=== PATIENT | female | born 1985 | race African-American/Black ===

== ENCOUNTER 2021-06-22 17:22 | Inpatient (IN) | payer OTHER ==
[2021-06-22] MEDS ORDERED: Morphine 4 MG/ML VIAL ONE (18:12)
[2021-06-22] MEDS ORDERED: Ondansetron PF 4 MG/2 ML Vial ONE (18:13)
[2021-06-22 18:20] LABS: Bilirubin Neg (Negative); Blood, Urine 10 (Negative); Clarity Clear (Clear); Glucose, Urine (Dipstick) Normal (Negative); Ketone, Urine Negative (Negative); Leukocyte Negative (Negative); Nitrite Negative (Negative); Protein, Urine (Dipstick) Negative (Neg-Trace); Specific Gravity, Urine 1.025 (1.002-1.036); Urobilinogen Normal mg/dL (Less than 2)
[2021-06-22 18:34] LABS: BHCG - Serum Negative (NEGATIVE); Pregs Control Background? CLEAR/WHITE (CLR/WHITE); Pregs Control Bar Appear? YES (CONTROL BAR)
[2021-06-22 18:36] LABS: #Basophils 0.1 10x3/uL (0.0-0.2); #Eosinphils 0.2 10x3/uL (0.0-0.5); #Monocytes 0.6 10x3/uL (0.0-1.1); #Neutrophils 7.5 10x3/uL (1.5-8.4); %Basophils 0.6 % (0.0-2.0); %Eosinophils 1.6 % (0.0-6.0); %Lymphocytes 34.4 % (18.0-47.0); %Monocytes 4.3 % (0.0-10.0); %Neutrophils 58.9 % (40.0-75.0); ALT (SGPT) 12 U/L (8-55); AST (SGOT) 14 U/L (5-34); Albumin 3.9 g/dL (3.5-5.0); Alkaline Phosphatase 114 U/L (40-110); Anion Gap 15 mmol/L (10-20); BUN (Urea Nitrogen) 14 mg/dL (7.0-18.7); Bilirubin, Total 0.1 mg/dL (0.2-1.2); Calc. Creatinine Clearance 0 mL/min (70-130); Calcium 9.6 mg/dL (7.8-10.44); Carbon Dioxide 20 mmol/L (22-29); Chloride 109 mmol/L (98-107); Globulin 3.1 g/dL (2.4-3.5); Glucose 115 mg/dL (70-105); Hemoglobin 12.6 g/dL (12.0-15.5); Lipase 30 U/L (8-78); Mean Corpuscular HGB CONC 31.7 g/dL (32.0-36.0); Mean Corpuscular Hemoglobin 26.5 pg (27.0-33.0); Mean Corpuscular Volume 83.6 fl (81.6-98.3); Mean Platelet Volume 11.1 fl (7.4-10.4); Platelet Count 298 10x3/uL (150-450); Potassium 3.7 mmol/L (3.5-5.1); RBC Distribution Width 14.4 % (11.5-14.5); Red Blood Cell (RBC) Count 4.75 10x6/uL (3.90-5.03); Sodium 140 mmol/L (136-145); White Blood Cell (WBC) Count 12.7 10x3/uL (3.5-10.5)
[2021-06-22 18:58] LABS: Bacteria/HPF 1+ HPF (None Seen); Mucous/LPF 2+ LPF (<2+); RBC/HPF 0-3 HPF (0-3)
[2021-06-22] MEDS ORDERED: Piperacillin/Tazobactam 4.5 GM VIAL ONE (22:22)
[2021-06-22] MEDS ORDERED: Morphine 2 MG/ML VIAL ONE (22:29)
[2021-06-23 01:16] LABS: SARS-CoV-2 NAA Rapid Test Not Detected (NotDetected)
[2021-06-23] MEDS: Morphine 4 MG/ML VIAL SLOW IVP PRN ×3 (10:31→20:59)
[2021-06-23 12:45] VITALS: BMI 27.6
[2021-06-23] MEDS ORDERED: Fentanyl 100 MCG/2 ML VIAL ONE (15:32)
[2021-06-23] MEDS ORDERED: Ondansetron PF 4 MG/2 ML Vial ONE (15:32)
[2021-06-23] MEDS ORDERED: PROPOFOL 20 ML ONE (15:32)
[2021-06-23] MEDS ORDERED: Dexamethasone 4 mg/ml Vial ONE (15:32)
[2021-06-23] MEDS ORDERED: Rocuronium Bromide 10 MG/ML (10ML VIAL) ONE (15:32)
[2021-06-23] MEDS ORDERED: Midazolam HCl 2 mg/2 ml Vial ONE (15:32)
[2021-06-23] MEDS ORDERED: Bupivacaine 0.25% HCL 30 ML VIAL ONE (15:33)
[2021-06-23] MEDS ORDERED: EPINEPHrine 1 MG/ML AMP ONE (15:33)
[2021-06-23] MEDS ORDERED: Lidocaine 2% PF 5 ML VIAL ONE (15:33)
[2021-06-23] MEDS ORDERED: Ketorolac Tromethamine 30 MG/ML VIAL ONE (16:50)
[2021-06-23] MEDS ORDERED: Glycopyrrolate 0.2 MG/ML 5 ML SYRINGE ONE (16:55)
[2021-06-23] MEDS ORDERED: Dextrose 50% Abboject 50 ML SYRINGE SLOW IVP PRN (17:55)
[2021-06-23] MEDS ORDERED: Promethazine HCl 25 MG/ML VIAL IM PRN (17:55)
[2021-06-23] MEDS ORDERED: Ondansetron PF 4 MG/2 ML Vial IVP PRN (17:55)
[2021-06-23] MEDS ORDERED: Mag-Al 1200 mg/1200 mg/30 ML UDCUP PO PRN (17:55)
[2021-06-23] MEDS ORDERED: Calcium Carbonate 500 MG ChewTAB PO PRN (17:55)
[2021-06-23] MEDS ORDERED: Dextrose 5% in Water 1,000 ML IV PRN (17:55)
[2021-06-23] MEDS ORDERED: hydrALAZINE 20 MG/ML VIAL SLOW IVP PRN (17:55)
[2021-06-23] MEDS: D5 1/2 NS w/20 mEq KCL 1,000 ML IV SCH ×2 (20:05→21:00)
[2021-06-23] MEDS: Famotidine/PF 20 mg/2ml Vial SLOW IVP SCH (20:58)
[2021-06-23] MEDS: HYDROcodone/Acetaminophen 10/325 mg Tablet PO PRN (22:35)
[2021-06-24] MEDS: HYDROcodone/Acetaminophen 10/325 mg Tablet PO PRN (04:05)
[2021-06-24] MEDS: Famotidine/PF 20 mg/2ml Vial SLOW IVP SCH (08:22)
[2021-06-24] MEDS: D5 1/2 NS w/20 mEq KCL 1,000 ML IV SCH (08:23)
[2021-06-24] MEDS: Morphine 4 MG/ML VIAL SLOW IVP PRN (08:33)
[2021-06-24] MEDS ORDERED: Enoxaparin Sodium 40 MG/0.4 ML SYRINGE SC SCH (09:00)
[2021-06-24 11:42] VITALS: BP 155/78; TEMP 97.1
== END 2021-06-24 15:22 | disposition home or self-care (01) | DRG 419 ==
LOC: CSHERS 17:22 → CSHERHOLD 19:11 → UNDOADMOB 06-23 00:37 → CSHERHOLD 06-23 08:33 → CSHTELE 06-23 08:33 → OBSVTOIN 06-23 17:55
PROVIDERS: ADMIT Obstetrics & Gynecology; ATTEND Surgery
PROC: 0FT44ZZ Resection of Gallbladder, Percutaneous Endoscopic Approach (ICD-10-PCS; principal; 2021-06-23)
DX: K80.00 Calculus of gallbladder with acute cholecystitis without obstruction (principal); Z20.822 Contact with and (suspected) exposure to COVID-19; F17.210 Nicotine dependence, cigarettes, uncomplicated
CPT/HCPCS: 76705; 80053; 81003; 81015; 83690; 84703; 85025; 88304; 96365; 96375; 96376; G0378; J0171; J0690; J1100; J1650; J1885; J2001; J2250; J2270; J2405; J2543; J2704; J3010; J3480; S0020; S0028; U0002

== ENCOUNTER 2022-03-31 08:37 | Emergency (ER) | payer OTHER ==
[2022-03-31] MEDS ORDERED: Dexamethasone 10 MG/ML VIAL ONE (09:10)
[2022-03-31] MEDS ORDERED: Ibuprofen 200 MG TAB ONE (09:10)
[2022-03-31] MEDS ORDERED: Acetaminophen 500 MG TAB ONE (09:11)
== END 2022-03-31 09:20 | disposition home or self-care (01) ==
LOC: CSHERS 08:37
DX: M79.10 Myalgia, unspecified site (principal); R50.9 Fever, unspecified; F17.200 Nicotine dependence, unspecified, uncomplicated
CPT/HCPCS: 99283; J1100